=== PATIENT | female | born 1960 | race Caucasian/White ===

== ENCOUNTER → 2017-05-09 | Outpatient (CLI) | payer OTHER ==
[~2017-05-09] MED LIST: LORAZEPAM INJ 2 MG/ML VIAL ONE
--- NOTE | 2017-05-09 13:57 | Diagnostic Imaging Report ---
MRI of the right hip without contrast. MRI of the left hip without contrast. History: Hip pain. Arthritis. Decreased range of motion. Remote trauma. Pain not responding to conservative management Technique: Multiplanar multisequence MRI of the right hip without contrast. Multiplanar multisequence MRI of the left hip without contrast. Findings: Please see MRI of the lumbar spine performed the same day for further details. The urinary bladder is distended. There is what appears to be a large superior posterior bladder diverticulum best seen on sagittal series 8 image 45. Right hip: There is no acute fracture, subluxation or evidence of avascular necrosis about the right hip. There is degeneration and fraying of the labrum. The articular cartilage surfaces are slightly thinned with regions of fraying and fissuring. There is a physiologic amount of fluid in the right hip joint. There is no evidence to suggest greater trochanteric bursitis. There is a moderate amount of edema in the right hip adductor musculature best seen on coronal series 7 image 20. This extends posteriorly. No full thickness muscle tear is seen. No ligamentous tear is seen. The visualized neurovascular bundles are intact. Left hip: There is no acute fracture, subluxation or evidence of avascular necrosis about the left hip. There is circumferential degenerative type tearing of the labrum. There is a small peripheral perimeniscal cyst best seen on coronal series 10 image 13 through 15. There is advanced full-thickness articular cartilage loss at the superior-lateral acetabulum and adjacent femoral head with joint space loss, subchondral cystic change, peripheral osteophytosis and underlying bone marrow edema. There is a left hip joint effusion and synovitis which projects posteriorly and inferiorly. This is best seen on series 9 image 14 through 25. There is no evidence to suggest greater trochanteric bursitis. The visualized muscles about the left hip are normal in size, signal intensity and morphology. No ligamentous tear is seen. The visualized neurovascular bundles are intact. Impression: Moderate amount of edema in the right hip adductor musculature consistent with a muscle strain. No full thickness muscle tear is seen. Advanced degenerative arthrosis in the left hip joint with effusion/synovitis projecting posteriorly and inferiorly. The urinary bladder is distended. There is what appears to be a large superior posterior bladder diverticulum. Pelvic ultrasound may be of benefit. Signed by: Dr. Cesario Hernandez M.D. on 05/09/2017 1:54 PM
--- NOTE | 2017-05-09 18:45 | Diagnostic Imaging Report ---
EXAMINATION: MRI of the lumbar spine without contrast HISTORY: Worsening low back pain radiating to the left lower extremity COMPARISON: None. TECHNIQUE: Sagittal T1, T2, STIR; axial T2 and proton density. Image quality: Motion artifact limits evaluation of some of the sequences. FINDINGS: It is assumed that there are 5 lumbar vertebrae. Curvature/Alignment: Normal lordosis. Grade 1 degenerative anterolisthesis at L4-5. Mild scoliosis with apex at L4-5. Left lateral spondylotic disc disease at L4-L5. Vertebrae: No evidence of recent fracture, infection, or neoplasm. Conus: Normal, terminating at L1-L2 Cauda equina: Unremarkable. Lower thoracic: Unremarkable. Paraspinal soft tissues: Atrophic left kidney, perhaps sequela from prior infections. Distended urinary bladder. Partially visualized cystic lesion in the pelvis, perhaps an ectopic. A pelvic ultrasound is recommended for final evaluation. Moderate atrophy of the paraspinal muscles. Degenerative changes: L1-L2: Mild symmetric disc bulge without stenosis L2-L3: Mild symmetric disc bulge without stenosis L3-L4: Minimal symmetric disc bulge and facet arthrosis without stenosis L4-L5: Decreased disc height and T2 signal intensity, asymmetric to the right disc osteophyte and prominent facet arthrosis. Moderate right foraminal stenoses. No evidence of nerve root compression. L5-S1: Mild symmetric disc bulge with a tiny 2 mm central disc protrusion and mild bilateral facet arthrosis. No canal or foraminal stenosis IMPRESSION: 1. Grade 1 degenerative anterolisthesis at L4-L5 with mild scoliosis centered at L4-5. 2. Moderate degenerative foraminal stenosis on the right at L4-5 without evidence of nerve root compression. 3. Partially visualized probable cystic lesion in the pelvis, a pelvic ultrasound is recommended. Signed by: Dr. Sarai Roe M.D. on 05/09/2017 6:41 PM
== END ==
LOC: MRI 05-01 08:20
PROVIDERS: ATTEND Specialist
DX: M54.5 Low back pain (principal); M16.0 Bilateral primary osteoarthritis of hip
CPT/HCPCS: 72148; 73721 ×2; J2060

== ENCOUNTER 2018-04-17 20:15 | Emergency (ER) | payer SELFPAY ==
[~2018-04-17] VITALS: Ht 182.9 cm; Wt 90.7 kg
--- OUTSIDE RECORDS SUMMARY | 2018-04-17 20:18 | XMS REPORT ---
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 Allergies, Adverse Reactions, Alerts Allergy Name Allergy Type Status Severity Reaction(s) Onset Date Inactive Date Treating Clinician Comments No Known Allergies DA Active U 2018-04-15 00:00:00 No Known Allergies DA Active U 2017-08-03 00:00:00 Medications This patient has no known medications. Results Test Description Test Time Test Comments Text Results Atomic Results Result Comments MRI HIP LEFT WO [place] [address] Patient Name: LEIGH LEIVA MR #: [id number] : 1960 Age/Sex: 56/F Req #: [id number] Adm Physician: Ordered by: LILIA CHOWDHURY MD Report #: [id number] Location: MRI Room/Bed: Procedure: [id number] MRI/MRI HIP LEFT WO Exam Date: Exam Time: REPORT STATUS: Signed MRI of the right hip without contrast. MRI of the left hip without contrast. History: Hip pain. Arthritis. Decreased range of motion. Remote trauma. Pain not responding to conservative management Technique: Multiplanar multisequence MRI of the right hip without contrast. Multiplanar multisequence MRI of the left hip without contrast. Findings: Please see MRI of the lumbar spine performed the same day for further details. The urinary bladder is distended. There is what appears to be a large superior posterior bladder diverticulum best seen on sagittal series 8 image 45. Right hip: There is no acute fracture, subluxation or evidence of avascular necrosis about the right hip. There is degeneration and fraying of the labrum. The articular cartilage surfaces are slightly thinned with regions of fraying and fissuring. There is a physiologic amount of fluid in the right hip joint. There is no evidence to suggest greater trochanteric bursitis. There is a moderate amount of edema in the right hip adductor musculature best seen on coronal series 7 image 20. This extends posteriorly. No full thickness muscle tear is seen. No ligamentous tear is seen. The visualized neurovascular bundles are intact. Left hip: There is no acute fracture, subluxation or evidence of avascular necrosis about the left hip. There is circumferential degenerative type tearing of the labrum. There is a small peripheral perimeniscal cyst best seen on coronal series 10 image 13 through 15. There is advanced full-thickness articular cartilage loss at the superior- lateral acetabulum and adjacent femoral head with joint space loss, subchondral cystic change, peripheral osteophytosis and underlying bone marrow edema. There is a left hip joint effusion and synovitis which projects po steriorly and inferiorly. This is best seen on series 9 image 14 through 25. There is no evidence to suggest greater trochanteric bursitis. The visualized muscles about the left hip are normal in size, signal intensity and morphology. No ligamentous tear is seen. The visualized neurovascular bundles are intact. Impression: Moderate amount of edema in the right hip adductor musculature consistent with a muscle strain. No full thickness muscle tear is seen. Advanced degenerative arthrosis in the left hip joint with effusion/synovitis projecting posteriorly and inferiorly. The urinary bladder is distended. There is what appears to be a large superior posterior bladder diverticulum. Pelvic ultrasound may be of benefit. Signed by: Dr. Cesario Hernandez M.D. on 05/09/2017 1:54 PM Dictated By: CESARIO HERNANDEZ MD, MD [id number] Transcribed By: BRIGHT on 05/09/17 9302 COPY TO: LILIA CHOWDHURY MD MRI HIP RIGHT WO [place] [address] Patient Name: LEIGH LEIVA MR #: [id number] : 1960 Age/Sex: 56/F Req #: [id number] Adm Physician: Ordered by: LILIA CHOWDHURY MD Report #: [id number] Location: MRI Room/Bed: Procedure: [id number] MRI/MRI HIP RIGHT WO Exam Date: Exam Time: REPORT STATUS: Signed MRI of the right hip without contrast. MRI of the left hip without contrast. History: Hip pain. Arthritis. Decreased range of motion. Remote trauma. Pain not responding to conservative management Technique: Multiplanar multisequence MRI of the right hip without contrast. Multiplanar multisequence MRI of the left hip without contrast. Findings: Please see MRI of the lumbar spine performed the same day for further details. The urinary bladder is distended. There is what appears to be a large superior posterior bladder diverticulum best seen on sagittal series 8 image 45. Right hip: There is no acute fracture, subluxation or evidence of avascular necrosis about the right hip. There is degeneration and fraying of the labrum. The articular cartilage surfaces are slightly thinned with regions of fraying and fissuring. There is a physiologic amount of fluid in the right hip joint. There is no evidence to suggest greater trochanteric bursitis. There is a moderate amount of edema in the right hip adductor musculature best seen on coronal series 7 image 20. This extends posteriorly. No full thickness muscle tear is seen. No ligamentous tear is seen. The visualized neurovascular bundles are intact. Left hip: There is no acute fracture, subluxation or evidence of avascular necrosis about the left hip. There is circumferential degenerative type tearing of the labrum. There is a small peripheral perimeniscal cyst best seen on coronal series 10 image 13 through 15. There is advanced full-thickness articular cartilage loss at the superior- lateral acetabulum and adjacent femoral head with joint space loss, subchondral cystic change, peripheral osteophytosis and underlying bone marrow edema. There is a left hip joint effusion and synovitis which projects po steriorly and inferiorly. This is best seen on series 9 image 14 through 25. There is no evidence to suggest greater trochanteric bursitis. The visualized muscles about the left hip are normal in size, signal intensity and morphology. No ligamentous tear is seen. The visualized neurovascular bundles are intact. Impression: Moderate amount of edema in the right hip adductor musculature consistent with a muscle strain. No full thickness muscle tear is seen. Advanced degenerative arthrosis in the left hip joint with effusion/synovitis projecting posteriorly and inferiorly. The urinary bladder is distended. There is what appears to be a large superior posterior bladder diverticulum. Pelvic ultrasound may be of benefit. Signed by: Dr. Cesario Hernandez M.D. on 05/09/2017 1:54 PM Dictated By: CESARIO HERNANDEZ MD, MD [id number] Transcribed By: BRIGHT on 05/09/17 1350 COPY TO: LILIA CHOWDHURY MD MRI SPINE LUMBAR WO [place] [address] Patient Name: LEIGH LEIVA MR #: [id number] : 1960 Age/Sex: 56/F Req #: [id number] Adm Physician: Ordered by: LILIA CHOWDHURY MD Report #: [id number] Location: MRI Room/Bed: Procedure: [id number] MRI/MRI SPINE LUMBAR WO Exam Date: Exam Time: REPORT STATUS: Signed EXAMINATION: MRI of the lumbar spine without contrast HISTORY: Worsening low back pain radiating to the left lower extremity COMPARISON: None. TECHNIQUE: Sagittal T1, T2, STIR; axial T2 and proton density. Image quality: Motion artifact limits evaluation of some of the sequences. FINDINGS: It is assumed that there are 5 lumbar vertebrae. Curvature/Alignment: Normal lordosis. Grade 1 degenerative anterolisthesis at L4-5. Mild scoliosis with apex at L4-5. Left lateral spondylotic disc disease at L4-L5. Vertebrae: No evidence of recent fracture, infection, or neoplasm. Conus: Normal, terminating at L1-L2 Cauda equina: Unremarkable. Lower thoracic: Unremarkable. Paraspinal soft tissues: Atrophic left kidney, perhaps sequela from prior infections. Distended urinary bladder. Partially visualized cystic lesion in the pelvis, perhaps an ectopic. A pelvic ultrasound is recommended for final evaluation. Moderate atrophy of the paraspinal muscles. Degenerative changes: L1-L2: Mild symmetric disc bulge without stenosis L2-L3: Mild symmetric disc bulge without stenosis L3-L4: Minimal symmetric disc bulge and facet arthrosis without stenosis L4-L5: Decreased disc height and T2 signal intensity, asymmetric to the right disc osteophyte and prominent facet arthrosis. Moderate right foraminal stenoses. No evidence of nerve root compression. L5-S1: Mild symmetric disc bulge with a tiny 2 mm central disc protrusion and mild bilateral facet arthrosis. No canal or foraminal stenosis IMPRESSION: 1. Grade 1 degenerative anterolisthesis at L4-L5 with mild scoliosis centered at L4-5. 2. Moderate degenerative foraminal stenosis on the right at L4-5 without evidence of nerve root compression. 3. Partially visualized probable cystic lesion in the pelvis, a pelvic ultrasound is recommended. Signed by: Dr. Gael Roe M.D. on 05/09/2017 6:41 PM Dictated By: GAEL ROE MD 40 Transcribed By: BRIGHT on 05/09/171840 COPY TO: LILIA CHOWDHURY MD
--- OUTSIDE RECORDS SUMMARY | 2018-04-17 20:18 | XMS REPORT | Summary of Care ---
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) Status: Active Other closed intra-articular fracture of distal end of right radius with malunion, subsequent encounter (733.81, S52.571P) Status: Active Medications Name Dates Details Medications not documented Allergies and Adverse Reactions Name Dates Details Allergy history not documented Status: Procedures Procedure Dates Details [U] XRAY WRIST MIN 3 VWS LEFT 62405 Date: 10-Sep-2017 Immunization Name Dates Details Immunizations not documented Social History Name Dates Details Unknown if ever smoked Vital Signs Date Test Result Details No Known Vitals to report Results Date Description Value Details [id number] [U] XRAY WRIST MIN 3 VWS LEFT 25075 XR WRIST MIN 3 VWS LEFT Images acquired, not reported on this accession number. [id number] [U] XRAY WRIST MIN 3 VWS LEFT 70179 XR WRIST MIN 3 VWS LEFT Images acquired, not reported on this accession number. [id number] [U] XRAY FOREARM 2 VWS LEFT 42715 XR FOREARM 2 VWS LEFT Images acquired, not reported on this accession number. Plan of Care Name Dates Details Planned Observations Planned Goals not documented Interventions Provided Labs/Procedures/Imaging* [U] XRAY WRIST MIN 3 VWS LEFT 12459; To Be Done: 10 Sep 2017 Instructions Name Dates Details Instructions not documented Encounters Appointment; MAGDALENA LENTZ M.D. Encounter Diagnosis: Problem not documented On: 02-Jul-2016 11:00 Appointment; FAVIOLA STAFFORD M.D. Encounter Diagnosis: Problem not documented On: 13-Aug-2017 10:00 Appointment; FAVIOLA STAFFORD M.D. Encounter Diagnosis: Problem not documented On: 10-Sep-2017 14:00
== END 2018-04-17 22:08 | disposition left against medical advice (07) ==
LOC: ER 20:15
DX: R07.89 Other chest pain (principal)